=== PATIENT | female | born 1960 | race Caucasian/White ===

== ENCOUNTER 2022-12-09 05:59 | Day surgery (SDC) | payer BC ==
[2022-12-09] VITALS (10 sets, daily range): BP systolic 87–111; BP diastolic 41–54
[~2022-12-09] VITALS: Ht 170.2 cm; Wt 64.5 kg
[2022-12-09] MEDS ORDERED: LEVO50TA PO (06:25)
[2022-12-09] MEDS ORDERED: EVOL140P3 (06:25)
[2022-12-09] MEDS ORDERED: diphenhydrAMINE 25mg capsule PO PRN (06:25)
[2022-12-09] MEDS ORDERED: normal saline 1,000 ML IV SCH (06:25)
[2022-12-09] MEDS ORDERED: MV-M1TAB19 PO (06:27)
[2022-12-09] MEDS ORDERED: VITAMIN D3 PO (06:28)
[2022-12-09] MEDS ORDERED: MULT-1219 PO (06:29)
[2022-12-09] MEDS ORDERED: DOCO1CAP6 PO (06:35)
[2022-12-09 07:01] LABS: BASOPHILS % (AUTO) 0.4 % (0-1); EOSINOPHILS # (AUTO) 0.2 X10'3 (0-0.9); EOSINOPHILS % (AUTO) 2.9 % (0-6); HEMATOCRIT 43.8 % (35.0-45.0); HEMOGLOBIN 14.8 g/dl (12.0-16.0); LYMPHOCYTES # (AUTO) 2.8 X10'3 (1.1-4.8); MEAN CORPUSCULAR HEMOGLOBIN 29.9 PG (27.0-31.0); MEAN CORPUSCULAR HGB CONC 33.8 g/dL (33.0-36.5); MEAN CORPUSCULAR VOLUME 88.4 FL (78-98); MEAN PLATELET VOLUME 8.1 FL (7.4-10.4); MONOCYTES # (AUTO) 0.5 X10'3 (0-0.9); MONOCYTES % (AUTO) 8.6 % (2-12); NEUTROPHILS # (AUTO) 2.5 X10'3 (1.8-7.7); NEUTROPHILS % (AUTO) 41.1 % (42-75); PLATELET COUNT 217 X10'3 (140-440); RED BLOOD COUNT 4.95 X10'6 (4.20-5.60); RED CELL DISTRIBUTION WIDTH 13.7 % (11.5-14.5)
[2022-12-09 07:11] LABS: ALBUMIN 4.2 G/DL (3.4-5.0); ANION GAP 6 (8-16); BLOOD UREA NITROGEN 16 MG/DL (7-18); BUN/CREATININE RATIO 18.6 (6.6-38.0); CALCIUM 9.1 MG/DL (8.5-10.1); CHLORIDE 105 MMOL/L (99-107); CREATININE 0.86 MG/DL (0.40-0.90); GLUCOSE 90 MG/DL (70-104); MAGNESIUM 2.1 MG/DL (1.5-2.4); POTASSIUM 4.1 MMOL/L (3.5-5.1); SODIUM 143 MMOL/L (135-145); TOTAL CARBON DIOXIDE 31.6 MMOL/L (24-32); eGFR 66 ML/MIN
[2022-12-09] MEDS ORDERED: verapamil 2.5 mg/ml inj IV ONE (07:30)
[2022-12-09] MEDS ORDERED: midazolam 1 mg/ML 2ml injection ONE ×2 (07:30→08:08)
[2022-12-09] MEDS ORDERED: nitroGLYCERIN-Tridil 50MG/D5W 250 ML IV ONE (07:30)
[2022-12-09] MEDS ORDERED: LIDOcaine 1% (10mg/ml) 2ml vial ONE (07:31)
[2022-12-09] MEDS ORDERED: iohexol 350MG/ML 100ml bottle IV ONE (07:31)
[2022-12-09] MEDS ORDERED: heparin 1,000unit/ml 10ml vial 10 ML ONE (07:31)
[2022-12-09] MEDS ORDERED: iohexol 350 MG/ML 50ML vial IV ONE (07:31)
[2022-12-09] MEDS ORDERED: fentaNYL/PF 50MCG/1 ML 2ML syringe ONE (07:32)
[2022-12-09] MEDS ORDERED: LIDOcaine 1% 30ml preserv. free vial ONE (08:02)
[2022-12-09] MEDS ORDERED: ondansetron/PF 4mg/2ml inj IV PRN (09:10)
[2022-12-09] MEDS ORDERED: acetaminophen 325mg tablet PO PRN (09:10)
[2022-12-09] MEDS ORDERED: proCHLORperazine 10 MG/2 ml inj IV PRN (09:10)
[2022-12-09] MEDS ORDERED: HYDROcodone/acetaminophen 5mg/325mg tablet PO PRN (09:10)
[2022-12-09] MEDS ORDERED: HYDROcodone/acetaminophen 10/325mg tab PO PRN (09:10)
== END 2022-12-09 12:15 | disposition home or self-care (01) ==
LOC: SSTAY O 05:59
PROVIDERS: ATTEND Internal Medicine Cardiovascular Disease
DX: R94.39 Abnormal result of other cardiovascular function study (principal); I34.0 Nonrheumatic mitral (valve) insufficiency; Z79.899 Other long term (current) drug therapy; E78.5 Hyperlipidemia, unspecified; E03.9 Hypothyroidism, unspecified; Z98.890 Other specified postprocedural states; Z90.11 Acquired absence of right breast and nipple; Z82.49 Family history of ischemic heart disease and other diseases of the circulatory system
CPT/HCPCS: 36415; 80048; 83735; 85025; 85610; 93458; 99152; 99153; C1760; C1769; C1894; J1644; J2250; J3010; J3490; J7030; Q0163; Q9967; A6258; C1725

== ENCOUNTER 2022-12-30 05:35 | Inpatient (IN) | payer BC ==
[2022-12-27 15:09] LABS: CLARITY,URINE CLEAR (Clear); COLOR,URINE YELLOW (Yellow); GLUCOSE, URINE NEGATIVE (Neg); KETONES,URINE NEGATIVE (Neg); LEUKOCYTE ESTERASE ,URINE NEGATIVE (Neg); NITRITES, URINE NEGATIVE (Neg); OCCULT BLOOD,URINE NEGATIVE (Neg); PH,URINE 5.5 (4.8-8.0); PROTEIN,URINE NEGATIVE (Neg); UROBILINOGEN,URINE 0.2 E.U/dL (0.2-1.0)
[2022-12-27 15:10] LABS: BASOPHILS % (AUTO) 0.4 % (0-1); EOSINOPHILS # (AUTO) 0.1 X10'3 (0-0.9); EOSINOPHILS % (AUTO) 2.3 % (0-6); LYMPHOCYTES # (AUTO) 2.5 X10'3 (1.1-4.8); LYMPHOCYTES % (AUTO) 39.7 % (21-51); MEAN CORPUSCULAR HGB CONC 33.9 g/dL (33.0-36.5); MEAN CORPUSCULAR VOLUME 88.4 FL (78-98); MEAN PLATELET VOLUME 7.8 FL (7.4-10.4); MONOCYTES # (AUTO) 0.5 X10'3 (0-0.9); NEUTROPHILS # (AUTO) 3.1 X10'3 (1.8-7.7); NEUTROPHILS % (AUTO) 49.6 % (42-75); PRE OP HEMATOCRIT 41.4 % (35.0-45.0); PRE OP PLATELET COUNT 247 X10'3 (140-440); RED BLOOD COUNT 4.68 X10'6 (4.20-5.60); RED CELL DISTRIBUTION WIDTH 13.5 % (11.5-14.5)
[2022-12-27 15:16] LABS: PRE OP PROTIME 10.3 SECONDS (9.0-12.0)
[2022-12-27 15:19] LABS: UA COLLECTION TYPE CLN CATCH MIDSTREAM
[2022-12-27 15:26] LABS: HEMOGLOBIN A1C 5.3 % (4.5-6.2)
[2022-12-27 15:54] LABS: ALBUMIN 4.2 G/DL (3.4-5.0); ALBUMIN/GLOBULIN RATIO 1.2 (1.1-1.5); ALKALINE PHOSPHATASE 126 IU/L (46-116); BLOOD UREA NITROGEN 18 MG/DL (7-18); BUN/CREATININE RATIO 25.4 (6.6-38.0); CALCIUM 9.3 MG/DL (8.5-10.1); CREATININE 0.71 MG/DL (0.40-0.90); PRE OP ALT 33 U/L (30-65); PRE OP AST 27 U/L (10-37); PRE OP BILIRUB, TOTAL 1.1 MG/DL (0.0-1.0); PRE OP GLUCOSE 94 MG/DL (70-104); TOTAL CARBON DIOXIDE 32.1 MMOL/L (24-32); TOTAL PROTEIN 7.8 G/DL (6.4-8.2); eGFR 83 ML/MIN
[2022-12-27 16:18] LABS: CHLORIDE 102 MMOL/L (99-107); PRE OP ANION GAP 5 (8-16); PRE OP POTASSIUM 3.6 MMOL/L (3.4-5.1); PRE OP SODIUM 139 MMOL/L (135-145)
[~2022-12-30] VITALS: Ht 170.2 cm; Wt 64.7 kg
[2022-12-30] VITALS (23 sets, daily range): BP systolic 91–134; BP diastolic 43–83
[~2022-12-30 05:35] MED LIST: ASCO500C12 PO; CHOL100025 PO; DOCO1CAP6 PO; EVOL140P3 SQ; Insulin Reg/NS 100units/100mL 100 ML IV SCH; LEVO150T PO; LORazepam 2 mg/ml vial IV ONE; ZINC100T2 PO; ceFAZolin inj. 2,000 MG in dextrose 5%-water 100 ML IV ONE; famotidine 20mg tablet PO ONE; metoprolol tartrate 12.5mg (1/2 tablet) PO ONE; mupirocin 2% nasal ointment 1gm UD NS ONE; ringers solution, lacted 1,000 ML IV SCH; tumeric; vancomycin/NS 1 GM in NS 250 ML IV ONE
[2022-12-30 06:37] LABS: ABG BASE EXCESS 0.7 mmol/L (-2.0-2.0); ABG OXYGEN SATURATION 96.2 % (94-97); ABG PCO2 (T) 38.9 mmHg (32.0-45.0); ABG PO2 (T) 82.1 mmHg (75.0-100.0); ALLEN'S TEST POSITIVE; FMetHb 0.1 % (0.0-1.5); FO2Hb 96.1 % (94-97); TOTAL HEMOGLOBIN 14.1 G/dl (12.0-16.0)
--- NOTE | 2022-12-30 07:10 | NUR ---
PATIENT PREPARED FOR MITRAL VALVE SURGERY. PT HAS HAD A RIGHT BREAST MASTECTOMY AND DOES NOT WANT BLOOD PRESSURES OR IV'S STARTED IN THAT ARM. SHE DID ALLOW ME TO TAKE ONE BLOOD PRESSURE IN THE RIGHT ARM. PT HAS HAD A PARTIAL THYRODECTOMY. 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 BILATERAL HUMIDIFIER ATTENDANT ARE EQUAL, BILATERAL FOOT STRENGTH IS EQUAL. PTS VANCOMYCIN STARTED VIA PUMP AND MUPIROCIN OINTMENT PLACED IN BILATERAL NARES. PT IS ANXIOUS. LISSETT IS AT THE BEDSIDE. PATIENT AND EDUCATED ON USE OF INCENTIVE SPIROMETRY. PT WAS ABLE TO RETURN DEMONSTRATE THE USE OF THE INCENTIVE SPIROMETER.
[2022-12-30] MEDS ORDERED: ceFAZolin 1000mg inj ONE ×2 (07:19→10:55)
[2022-12-30] MEDS ORDERED: epiNEPHrine 1 mg/ml inj ONE (07:19)
[2022-12-30] MEDS ORDERED: MIDAZolam 1mg/ml 10ml vial ONE (07:24)
[2022-12-30] MEDS ORDERED: fentaNYL /PF 50mcg/ml 5ml ampule ONE (07:24)
--- NOTE | 2022-12-30 07:30 | NUR ---
ANESTHESIA DOCTOR AT BEDSIDE, ALL QUESTIONS ANSWERED, CARDIAC PHYSICIAN'S SUPERVISOR OVENS SHI VALDOVINOS AT BEDSIDE 16 G IV IN LEFT FOREARM, INFUSING VANCOMYCIN WELL WITHOUT ISSUES.
[2022-12-30] MEDS ORDERED: midazolam 1 mg/ML 2ml injection IV PRN (07:35)
[2022-12-30] MEDS ORDERED: fentaNYL/PF 50MCG/1 ML 2ML syringe IV PRN (07:35)
--- NOTE | 2022-12-30 07:40 | NUR ---
PT STATES SHE READ THE INFORMATION PACKAGE AND USED THE SOAP TO CLEAN HER CHEST AND BODY FOR THE PAST 2 DAYS. SHE STATES THAT THE SOAP REALLY DRIED HER SKIN OUT AND MADE HER FEEL ITCHY. NO SIGNS OF RASH NOTED.
[2022-12-30] MEDS ORDERED: nitroGLYCERIN in D5W 50mg/250ml (Tridil) infusion IV ONE (07:41)
[2022-12-30] MEDS ORDERED: rocuronium 10mg/ml inj IV ONE ×3 (07:41→08:54)
[2022-12-30] MEDS ORDERED: protamine sulf. 10mg/ml inj. IV ONE (07:41)
[2022-12-30] MEDS ORDERED: NORepinephrine 8 MG in NS 250 ML BAG (32 mcg/ml) IV ONE (07:41)
[2022-12-30] MEDS ORDERED: isoflurane 100ml inhalation liquid IH ONE (07:41)
[2022-12-30 08:05] LABS: ABG BASE EXCESS -2.5 mmol/L (-2.0-2.0); ABG HCO3 22.9 mmol/L (22.0-26.0); ABG OXYGEN SATURATION 99.4 % (94-97); ABG PCO2 41.6 mmHg (32.0-45.0); ABG PO2 177.5 mmHg (75.0-100.0); CL (ABG) 105 mmol/L (99-107); FCOHb 0.9 % (0.0-3.9); FMetHb 0.3 % (0.0-1.5); FO2Hb 98.2 % (94-97); GLUCOSE (ABG) 105 mg/dl (70-104); K (ABG) 3.7 mmol/L (3.5-5.1)
[2022-12-30] MEDS ORDERED: FENTANYL-0.9 % NACL/PF 100 ML IV PRN (08:15)
[2022-12-30] MEDS ORDERED: propofol 1000mg/100ml bottle 100 ML IV SCH (08:15)
[2022-12-30 08:30] LABS: ACT @ 1.70 U 278 SEC (193-297); ACT @ 2.84 U 418 SEC (260-420); BASELINE ACT 152 SEC (101-148); PATIENT WEIGHT 64.0k KG
[2022-12-30] MEDS ORDERED: ePHEDrine 50MG/ML INJ. ONE (08:54)
[2022-12-30] MEDS ORDERED: LIDOcaine 2% (20mg/ml) 5ml vial ONE (08:54)
[2022-12-30] MEDS ORDERED: propofol inj 20 ML IV ONE (08:54)
[2022-12-30] MEDS ORDERED: 0.9 % SODIUM CHLORIDE 10 ML VIAL ONE (08:54)
[2022-12-30] MEDS ORDERED: phenylephrine 10mg/ml inj. -priapism dosing ONE (08:55)
[2022-12-30 09:21] LABS: ABG BASE EXCESS -0.3 mmol/L (-2.0-2.0); ABG HCO3 24.9 mmol/L (22.0-26.0); ABG OXYGEN SATURATION 99.6 % (94-97); ABG PCO2 43.1 mmHg (32.0-45.0); ABG PO2 321.7 mmHg (75.0-100.0); CL (ABG) 103 mmol/L (99-107); FCOHb 0.2 % (0.0-3.9); FMetHb 0.3 % (0.0-1.5); FO2Hb 99.1 % (94-97); GLUCOSE (ABG) 122 mg/dl (70-104); IONIZED CA (ABG) 1.05 mmol/L (1.10-1.30); K (ABG) 5.2 mmol/L (3.5-5.1); TOTAL HEMOGLOBIN 9.6 G/dl (12.0-16.0)
[2022-12-30 10:03] LABS: ABG BASE EXCESS 1.5 mmol/L (-2.0-2.0); ABG HCO3 28.5 mmol/L (22.0-26.0); ABG OXYGEN SATURATION 99.3 % (94-97); ABG PCO2 57.7 mmHg (32.0-45.0); ABG PO2 461.8 mmHg (75.0-100.0); CL (ABG) 103 mmol/L (99-107); FCOHb 0.3 % (0.0-3.9); FMetHb 0.3 % (0.0-1.5); FO2Hb 98.7 % (94-97); GLUCOSE (ABG) 207 mg/dl (70-104); IONIZED CA (ABG) 1.34 mmol/L (1.10-1.30); K (ABG) 4.8 mmol/L (3.5-5.1); TOTAL HEMOGLOBIN 9.6 G/dl (12.0-16.0)
[2022-12-30 10:32] LABS: ABG BASE EXCESS -0.4 mmol/L (-2.0-2.0); ABG HCO3 23.6 mmol/L (22.0-26.0); ABG OXYGEN SATURATION 98.8 % (94-97); ABG PCO2 35.4 mmHg (32.0-45.0); ABG PO2 148.2 mmHg (75.0-100.0); CL (ABG) 106 mmol/L (99-107); FCOHb 0.4 % (0.0-3.9); FMetHb 0.3 % (0.0-1.5); FO2Hb 98.1 % (94-97); GLUCOSE (ABG) 178 mg/dl (70-104); IONIZED CA (ABG) 1.26 mmol/L (1.10-1.30); K (ABG) 4.3 mmol/L (3.5-5.1); TOTAL HEMOGLOBIN 8.9 G/dl (12.0-16.0)
[2022-12-30 10:35] LABS: ACTIVATED CLOTTING TIME 105 SEC (101-148)
[2022-12-30] MEDS ORDERED: dexamethasone sod phosphate 4mg/ml inj. ONE (10:48)
[2022-12-30] MEDS ORDERED: ondansetron/PF 4mg/2ml inj ONE (10:48)
[2022-12-30] MEDS ORDERED: morphine 10mg/ml inj. ONE (10:48)
[2022-12-30] MEDS ORDERED: insulin glargine (Lantus) pen - multi-dose SQ PRN (10:50)
[2022-12-30] MEDS ORDERED: magnesium hydroxide 30ml (MOM) UD suspension PO PRN (10:50)
[2022-12-30] MEDS ORDERED: magnesium 4gm in 100ml NS 100 ML IV PRN (10:50)
[2022-12-30] MEDS ORDERED: magnesium citrate 296ml oral solution PO PRN (10:50)
[2022-12-30] MEDS ORDERED: ondansetron/PF 4mg/2ml inj IV PRN (10:50)
[2022-12-30] MEDS ORDERED: magnesium 2GM in 50ml NS 50 ML IV PRN (10:50)
[2022-12-30] MEDS ORDERED: bisacodyl 10mg suppository rectal RC PRN (10:50)
[2022-12-30] MEDS ORDERED: dextrose 50%-water 50ml dispensing syringe IV PRN (10:50)
[2022-12-30] MEDS ORDERED: HYDROcodone/acetaminophen 10/325mg tab PO PRN (10:50)
[2022-12-30] MEDS ORDERED: potassium CL 10mEq/100ml bag 100 ML IV PRN (10:50)
[2022-12-30] MEDS ORDERED: sodium phosphate inj. 30 MMOL in dextrose 5%-water 250 ML IV PRN (10:50)
[2022-12-30] MEDS ORDERED: morphine 2 MG/ML inj. syringe IV PRN (10:50)
[2022-12-30] MEDS ORDERED: nitroGLYCERIN-Tridil 50MG/D5W 250 ML IV PRN (10:50)
[2022-12-30] MEDS ORDERED: mineral oil 133ml enema RC PRN (10:50)
[2022-12-30] MEDS ORDERED: potassium Cl 40MEQ/1/2NS 520ml 520 ML IV PRN (10:50)
[2022-12-30] MEDS ORDERED: potassium Cl 20 mEq SR tablet PO PRN (10:50)
[2022-12-30] MEDS ORDERED: metoclopramide 5 mg/ml inj IV PRN (10:50)
[2022-12-30] MEDS ORDERED: Neutra Phos packet PO PRN (10:50)
[2022-12-30] MEDS ORDERED: niCARDipine-NS 40mg/200ml IVPB 200 ML IV PRN (10:50)
[2022-12-30] MEDS ORDERED: morphine 4 MG/ML inj SYRINge IV PRN (10:50)
[2022-12-30] MEDS ORDERED: sodium phosphate inj. 15 MMOL in dextrose 5%-water 250 ML IV PRN (10:50)
[2022-12-30] MEDS ORDERED: potassium Cl 40MEQ/270ML bag 250 ML IV PRN (10:50)
[2022-12-30] MEDS ORDERED: albumin (Human) 5% 250ml 250 ML IV ONE ×2 (11:00→22:00)
--- NOTE | 2022-12-30 11:20 | NUR ---
Received to room , accompanied by Jono Scott and surgical crew. Placed on ventilator, to tuber machine operator helper, arterial line and PA line pressure zeroed & monitored. Chest tubes to suction at 20 cm. Dee cath to gravity drainage. Dressings are dry and intact. See assessment record. All vasoactive drugs are infusing via central line.
[2022-12-30 11:39] LABS: ABG BASE EXCESS -3.2 mmol/L (-2.0-2.0); ABG HCO3 22.2 mmol/L (22.0-26.0); ABG OXYGEN SATURATION 97.9 % (94-97); ABG PCO2 (T) 40.7 mmHg (32.0-45.0); FMetHb 0.2 % (0.0-1.5); FO2Hb 97.7 % (94-97); PATIENT TEMPERATURE 36.7; PEEP 5 cm H2O; RESPIRATORY RATE 12 b/min; TIDAL VOLUME 500 mL; TOTAL HEMOGLOBIN 13.1 G/dl (12.0-16.0)
[2022-12-30 11:40] LABS: BASOPHILS % (AUTO) 0.1 % (0-1); EOSINOPHILS # (AUTO) 0.1 X10'3 (0-0.9); EOSINOPHILS % (AUTO) 0.7 % (0-6); HEMATOCRIT 37.9 % (35.0-45.0); HEMOGLOBIN 12.8 g/dl (12.0-16.0); LYMPHOCYTES # (AUTO) 1.2 X10'3 (1.1-4.8); LYMPHOCYTES % (AUTO) 15.1 % (21-51); MEAN CORPUSCULAR HEMOGLOBIN 30.1 PG (27.0-31.0); MEAN CORPUSCULAR HGB CONC 33.6 g/dL (33.0-36.5); MEAN CORPUSCULAR VOLUME 89.3 FL (78-98); MEAN PLATELET VOLUME 7.4 FL (7.4-10.4); MONOCYTES # (AUTO) 0.3 X10'3 (0-0.9); MONOCYTES % (AUTO) 3.1 % (2-12); NEUTROPHILS # (AUTO) 6.5 X10'3 (1.8-7.7); PLATELET COUNT 124 X10'3 (140-440); RED BLOOD COUNT 4.25 X10'6 (4.20-5.60); RED CELL DISTRIBUTION WIDTH 13.4 % (11.5-14.5); WHITE BLOOD COUNT 8.1 X10'3 (4.5-11.0)
[2022-12-30 12:03] LABS: APTT 24 SECONDS (22-32)
[2022-12-30 12:06] LABS: ALANINE AMINOTRANSFERASE 20 U/L (12-78); ALBUMIN 3.1 G/DL (3.4-5.0); ALBUMIN/GLOBULIN RATIO 1.7 (1.1-1.5); ALKALINE PHOSPHATASE 57 IU/L (46-116); ANION GAP 6 (8-16); ASPARTATE AMINO TRANSFERASE 43 U/L (10-37); BILIRUBIN,TOTAL 0.9 MG/DL (0.1-1.0); BLOOD UREA NITROGEN 14 MG/DL (7-18); BUN/CREATININE RATIO 15.9 (6.6-38.0); CALCIUM 8.7 MG/DL (8.5-10.1); CHLORIDE 110 MMOL/L (99-107); CREATININE 0.88 MG/DL (0.40-0.90); GLUCOSE 122 MG/DL (70-104); MAGNESIUM 3.7 MG/DL (1.5-2.4); PHOSPHORUS 2.9 MG/DL (2.3-4.5); POTASSIUM 4.1 MMOL/L (3.5-5.1); SODIUM 143 MMOL/L (135-145); TOTAL CARBON DIOXIDE 27.2 MMOL/L (24-32); TOTAL PROTEIN 4.9 G/DL (6.4-8.2); eGFR 65 ML/MIN
[2022-12-30] MEDS: sodium chloride 0.45% 1,000 ML IV SCH (12:30)
[2022-12-30] MEDS: albumin (Human) 5% 250ml 250 ML IV PRN ×3 (12:31→14:53)
[2022-12-30] MEDS: Insulin Reg/NS 100units/100mL 100 ML IV SCH (12:32)
--- NOTE | 2022-12-30 13:19 | NUR ---
Nutrition Consult: Pt s/p OR for MV repair today per EMR; would benefit from high protein diet ed once appropriate post-op prior to discharge. Addendum: 12/30/22 at [address] Amended: Links added.
[2022-12-30] MEDS: ketorolac tromethamine 15mg/ml inj. IV SCH ×2 (13:55→20:40)
[2022-12-30] MEDS: potassium Cl 20mEq/100mL bag 100 ML IV PRN ×2 (13:55→16:02)
[2022-12-30] MEDS: ceFAZolin/D5W- 1GM premix 50 ML IV SCH (15:25)
[2022-12-30] MEDS ORDERED: methylPREDNISolone sod succ 1000mg vial ONE (16:00)
[2022-12-30] MEDS ORDERED: heparin 10,000 units/1 ML INJ ONE (16:00)
[2022-12-30] MEDS ORDERED: potassium Cl 2 mEq/ml inj IV ONE (16:00)
[2022-12-30] MEDS ORDERED: NORepinephrine 1 mg/ml inj IV ONE (16:00)
[2022-12-30] MEDS ORDERED: aminocaproic acid 250 MG/1 ML inj. ONE (16:00)
[2022-12-30] MEDS ORDERED: albumin (human) 25% 100 ML IV solution IV ONE (16:00)
[2022-12-30] MEDS ORDERED: sodium bicarbonate (8.4%) 1 mEq/ml syringe ONE (16:00)
[2022-12-30] MEDS ORDERED: calcium chloride 100 MG/1 ML inj IV ONE (16:00)
[2022-12-30] MEDS ORDERED: MAGNESIUM SULFATE 4 MEQ/ML (5gm/10ml) injection ONE (16:00)
[2022-12-30] MEDS ORDERED: LIDOcaine 2% (20 mg/ml) 5ml cardiac syringe ONE (16:00)
[2022-12-30] MEDS ORDERED: heparin 1,000 units/ml 10ml inj ONE (16:00)
[2022-12-30] MEDS ORDERED: mannitol 12.5gm/50mL VIAL IV ONE (16:00)
[2022-12-30 17:26] LABS: ABG BASE EXCESS -3.2 mmol/L (-2.0-2.0); ABG HCO3 22.8 mmol/L (22.0-26.0); ABG OXYGEN SATURATION 95.9 % (94-97); ABG PCO2 (T) 43.7 mmHg (32.0-45.0); FCOHb 0.2 % (0.0-3.9); FMetHb 0.2 % (0.0-1.5); FO2Hb 95.5 % (94-97); PATIENT TEMPERATURE 36.3; PEEP 5 cm H2O; TIDAL VOLUME 567 mL; TOTAL HEMOGLOBIN 9.8 G/dl (12.0-16.0)
[2022-12-30 17:59] LABS: ALBUMIN 3.4 G/DL (3.4-5.0); ANION GAP 7 (8-16); BLOOD UREA NITROGEN 13 MG/DL (7-18); BUN/CREATININE RATIO 16.7 (6.6-38.0); CALCIUM 7.6 MG/DL (8.5-10.1); CHLORIDE 115 MMOL/L (99-107); CREATININE 0.78 MG/DL (0.40-0.90); GLUCOSE 122 MG/DL (70-104); MAGNESIUM 2.4 MG/DL (1.5-2.4); PHOSPHORUS 2.5 MG/DL (2.3-4.5); POTASSIUM 4.6 MMOL/L (3.5-5.1); SODIUM 146 MMOL/L (135-145); TOTAL CARBON DIOXIDE 24.5 MMOL/L (24-32); eGFR 74 ML/MIN
--- NOTE | 2022-12-30 18:05 | NUR ---
Pt has gone apneic during multiple spontaneous breathing trials. Pt placed back on rate to facilitate safe hand off.
[2022-12-30 18:07] LABS: BASOPHILS % (AUTO) 0 % (0-1); EOSINOPHILS % (AUTO) 0 % (0-6); HEMATOCRIT 26.1 % (35.0-45.0); HEMOGLOBIN 8.8 g/dl (12.0-16.0); LYMPHOCYTES # (AUTO) 0.7 X10'3 (1.1-4.8); LYMPHOCYTES % (AUTO) 10.1 % (21-51); MEAN CORPUSCULAR HEMOGLOBIN 30.1 PG (27.0-31.0); MEAN CORPUSCULAR HGB CONC 33.7 g/dL (33.0-36.5); MEAN CORPUSCULAR VOLUME 89.2 FL (78-98); MEAN PLATELET VOLUME 7.5 FL (7.4-10.4); MONOCYTES # (AUTO) 0.2 X10'3 (0-0.9); MONOCYTES % (AUTO) 3.8 % (2-12); NEUTROPHILS # (AUTO) 5.6 X10'3 (1.8-7.7); NEUTROPHILS % (AUTO) 86.1 % (42-75); PLATELET COUNT 91 X10'3 (140-440); RED BLOOD COUNT 2.92 X10'6 (4.20-5.60); RED CELL DISTRIBUTION WIDTH 13.4 % (11.5-14.5); WHITE BLOOD COUNT 6.5 X10'3 (4.5-11.0)
--- NOTE | 2022-12-30 18:15 | NUR ---
Problems reprioritized. Patient report given, questions answered & plan of care reviewed with SAYDA Christianson.
[2022-12-30 19:40] LABS: ANISOCYTOSIS FEW; ELLIPTOCYTES FEW; PLATELET ESTIMATE DECREASED; TEAR DROP CELLS FEW
[2022-12-30] MEDS ORDERED: ZINC GLUCONATE PO SCH (20:00)
[2022-12-30] MEDS: sennosides/docusate sodium tablet PO SCH (20:00)
[2022-12-30] MEDS: vancomycin/NS 1 GM ADD-VANTAGE 250 ML IV SCH (20:39)
[2022-12-30] MEDS: mupirocin 2% nasal ointment 1gm UD NS SCH (20:39)
[2022-12-30] MEDS: atorvastatin 10mg tablet PO SCH (21:00)
[2022-12-30] MEDS ORDERED: amiodarone 150mg/dext, iso-os 100 ML IV ONE (22:00)
[2022-12-30 22:15] LABS: ABG BASE EXCESS -3.3 mmol/L (-2.0-2.0); ABG HCO3 22.1 mmol/L (22.0-26.0); ABG OXYGEN SATURATION 93.8 % (94-97); ABG PCO2 (T) 40.9 mmHg (32.0-45.0); ABG PO2 (T) 73.9 mmHg (75.0-100.0); ALLEN'S TEST POSITIVE; FCOHb 0.3 % (0.0-3.9); FMetHb 0.3 % (0.0-1.5); FO2Hb 93.2 % (94-97); PATIENT TEMPERATURE 36.7; PEEP 5 cm H2O; TOTAL HEMOGLOBIN 9.5 G/dl (12.0-16.0)
[2022-12-30] MEDS: amiodarone/D5 360MG/200ML BAG 200 ML IV SCH (22:40)
[2022-12-31] VITALS (21 sets, daily range): BP systolic 91–121; BP diastolic 40–64
[2022-12-31] MEDS: ceFAZolin/D5W- 1GM premix 50 ML IV SCH ×3 (03:07→16:17)
[2022-12-31] MEDS: ketorolac tromethamine 15mg/ml inj. IV SCH ×2 (03:08→07:33)
[2022-12-31] MEDS: amiodarone/D5 360MG/200ML BAG 200 ML IV SCH (04:37)
[2022-12-31] MEDS: acetaminophen 325mg tablet PO PRN ×2 (05:08→11:30)
[2022-12-31 05:12] LABS: BASOPHILS % (AUTO) 0 % (0-1); EOSINOPHILS % (AUTO) 0 % (0-6); HEMATOCRIT 25.8 % (35.0-45.0); HEMOGLOBIN 8.6 g/dl (12.0-16.0); LYMPHOCYTES # (AUTO) 1.6 X10'3 (1.1-4.8); LYMPHOCYTES % (AUTO) 14.6 % (21-51); MEAN CORPUSCULAR HEMOGLOBIN 29.9 PG (27.0-31.0); MEAN CORPUSCULAR HGB CONC 33.2 g/dL (33.0-36.5); MEAN CORPUSCULAR VOLUME 89.9 FL (78-98); MEAN PLATELET VOLUME 8.1 FL (7.4-10.4); MONOCYTES % (AUTO) 8.9 % (2-12); NEUTROPHILS # (AUTO) 8.4 X10'3 (1.8-7.7); NEUTROPHILS % (AUTO) 76.5 % (42-75); PLATELET COUNT 117 X10'3 (140-440); RED BLOOD COUNT 2.87 X10'6 (4.20-5.60); RED CELL DISTRIBUTION WIDTH 13.8 % (11.5-14.5)
[2022-12-31 05:26] LABS: ALANINE AMINOTRANSFERASE 19 U/L (12-78); ALBUMIN 3.5 G/DL (3.4-5.0); ALBUMIN/GLOBULIN RATIO 1.9 (1.1-1.5); ALKALINE PHOSPHATASE 44 IU/L (46-116); ANION GAP 5 (8-16); ASPARTATE AMINO TRANSFERASE 49 U/L (10-37); BILIRUBIN,TOTAL 0.6 MG/DL (0.1-1.0); BLOOD UREA NITROGEN 13 MG/DL (7-18); BUN/CREATININE RATIO 18.8 (6.6-38.0); CALCIUM 7.6 MG/DL (8.5-10.1); CHLORIDE 111 MMOL/L (99-107); CREATININE 0.69 MG/DL (0.40-0.90); GLUCOSE 136 MG/DL (70-104); MAGNESIUM 2.5 MG/DL (1.5-2.4); PHOSPHORUS 3.9 MG/DL (2.3-4.5); SODIUM 142 MMOL/L (135-145); TOTAL CARBON DIOXIDE 26.3 MMOL/L (24-32); TOTAL PROTEIN 5.3 G/DL (6.4-8.2); eGFR 86 ML/MIN
--- NOTE | 2022-12-31 06:30 | NUR ---
Patient in room CICU 2007. I have received report from SAYDA Christianson and had the opportunity to ask questions and assume patient care.
[2022-12-31] MEDS: sennosides/docusate sodium tablet PO SCH ×2 (07:31→20:11)
[2022-12-31] MEDS: cholecalciferol (vitamin D3) 1,000 unit (25mcg) tablet PO SCH (07:31)
[2022-12-31] MEDS: levoTHYROXINE 75mcg tablet PO SCH (07:32)
[2022-12-31] MEDS ORDERED: mineral oil/petrolatum ophthal oint EACHEYE SCH (08:00)
[2022-12-31] MEDS ORDERED: metoprolol tartrate 12.5mg (1/2 tablet) PO SCH (08:00)
[2022-12-31] MEDS: vancomycin/NS 1 GM ADD-VANTAGE 250 ML IV SCH ×2 (08:18→20:09)
[2022-12-31] MEDS: mupirocin 2% nasal ointment 1gm UD NS SCH ×2 (08:18→20:11)
--- NOTE | 2022-12-31 09:10 | NUR ---
Left radial arterial line and Swanz/ Introducer discontinued.
[2022-12-31] MEDS: potassium Cl 20mEq/100mL bag 100 ML IV PRN ×2 (09:49→16:38)
[2022-12-31] MEDS: aspirin 81mg tab.chew PO SCH (12:46)
[2022-12-31] MEDS: LIDOcaine 5% patch TP SCH (12:52)
[2022-12-31] MEDS: HYDROcodone/acetaminophen 10/325mg tab PO PRN ×2 (13:36→17:35)
--- NOTE | 2022-12-31 16:45 | NUR ---
Dr De La Cruz rounded. Pacer check performed. Pt underlying rhythm sinus mabel in 50s. She has complaints of discomfort from central line site. Received orders to discontinue central line from Dr De La Cruz.
--- NOTE | 2022-12-31 17:40 | NUR ---
Central line pulled. Pt has edema in right neck. Observable bounding right carotid pulse. Pt reports that discomfort has decreased, but is still present. Manual pressure held [address] De La Cruz. Close observation ordered. No imaging orders at this time.
--- NOTE | 2022-12-31 18:16 | NUR ---
Problems reprioritized. Patient report given, questions answered & plan of care reviewed with SAYDA Adamson.
[2022-12-31] MEDS: atorvastatin 10mg tablet PO SCH (20:10)
[2022-12-31] MEDS: Insulin Reg/NS 100units/100mL 100 ML IV SCH (20:10)
[2023-01-01] VITALS (25 sets, daily range): BP systolic 96–127; BP diastolic 40–76
[2023-01-01] MEDS: ceFAZolin/D5W- 1GM premix 50 ML IV SCH (00:29)
[2023-01-01 04:26] LABS: BASOPHILS % (AUTO) 0 % (0-1); EOSINOPHILS % (AUTO) 0 % (0-6); HEMATOCRIT 27.9 % (35.0-45.0); HEMOGLOBIN 9.3 g/dl (12.0-16.0); LYMPHOCYTES # (AUTO) 1.7 X10'3 (1.1-4.8); LYMPHOCYTES % (AUTO) 15.2 % (21-51); MEAN CORPUSCULAR HEMOGLOBIN 29.9 PG (27.0-31.0); MEAN CORPUSCULAR HGB CONC 33.3 g/dL (33.0-36.5); MEAN CORPUSCULAR VOLUME 89.8 FL (78-98); MEAN PLATELET VOLUME 8.2 FL (7.4-10.4); MONOCYTES % (AUTO) 8.4 % (2-12); NEUTROPHILS # (AUTO) 8.8 X10'3 (1.8-7.7); NEUTROPHILS % (AUTO) 76.4 % (42-75); PLATELET COUNT 123 X10'3 (140-440); RED BLOOD COUNT 3.11 X10'6 (4.20-5.60); WHITE BLOOD COUNT 11.5 X10'3 (4.5-11.0)
[2023-01-01 04:35] LABS: ALBUMIN 3.5 G/DL (3.4-5.0); ANION GAP 6 (8-16); BLOOD UREA NITROGEN 15 MG/DL (7-18); BUN/CREATININE RATIO 22.1 (6.6-38.0); CALCIUM 8.5 MG/DL (8.5-10.1); CHLORIDE 105 MMOL/L (99-107); CREATININE 0.68 MG/DL (0.40-0.90); GLUCOSE 132 MG/DL (70-104); MAGNESIUM 2.1 MG/DL (1.5-2.4); PHOSPHORUS 2.9 MG/DL (2.3-4.5); SODIUM 137 MMOL/L (135-145); TOTAL CARBON DIOXIDE 25.6 MMOL/L (24-32); eGFR 87 ML/MIN
[2023-01-01] MEDS: acetaminophen 325mg tablet PO PRN (04:35)
--- NOTE | 2023-01-01 06:26 | NUR ---
Problems reprioritized. Patient report given, questions answered & plan of care reviewed with SAYDA Braxton.
[2023-01-01] MEDS: levoTHYROXINE 75mcg tablet PO SCH (07:30)
[2023-01-01] MEDS: mupirocin 2% nasal ointment 1gm UD NS SCH (07:30)
[2023-01-01] MEDS: cholecalciferol (vitamin D3) 1,000 unit (25mcg) tablet PO SCH (07:30)
[2023-01-01] MEDS: pantoprazole 40mg Tablet.DR PO SCH (07:30)
[2023-01-01] MEDS: sennosides/docusate sodium tablet PO SCH ×2 (07:30→20:04)
[2023-01-01] MEDS: aspirin 81mg tab.chew PO SCH (07:31)
[2023-01-01] MEDS: LIDOcaine 5% patch TP SCH (07:31)
--- NOTE | 2023-01-01 08:57 | NUR ---
Everett and CHELA rounded on patient. chest tubes removed. Pacemaker briefly paused to see underlying rhythm. Accelerated junctional rhythm.
--- NOTE | 2023-01-01 09:43 | NUR ---
discontinued urinary catheter
[2023-01-01] MEDS: sodium chloride 0.45% 1,000 ML IV SCH (10:21)
--- NOTE | 2023-01-01 18:15 | NUR ---
Patient in room CICU 2007. I have received report from Irais and had the opportunity to ask questions and assume patient care.
[2023-01-01] MEDS: atorvastatin 10mg tablet PO SCH ×2 (20:09→21:00)
[2023-01-02] VITALS (23 sets, daily range): BP systolic 86–127; BP diastolic 34–65
[2023-01-02 03:33] LABS: BASOPHILS % (AUTO) 0 % (0-1); EOSINOPHILS % (AUTO) 0 % (0-6); HEMATOCRIT 25.4 % (35.0-45.0); HEMOGLOBIN 8.7 g/dl (12.0-16.0); LYMPHOCYTES # (AUTO) 1.8 X10'3 (1.1-4.8); LYMPHOCYTES % (AUTO) 22.6 % (21-51); MEAN CORPUSCULAR HEMOGLOBIN 30.3 PG (27.0-31.0); MEAN CORPUSCULAR HGB CONC 34.1 g/dL (33.0-36.5); MEAN PLATELET VOLUME 7.7 FL (7.4-10.4); MONOCYTES # (AUTO) 0.7 X10'3 (0-0.9); MONOCYTES % (AUTO) 9.2 % (2-12); NEUTROPHILS # (AUTO) 5.5 X10'3 (1.8-7.7); NEUTROPHILS % (AUTO) 68.2 % (42-75); PLATELET COUNT 124 X10'3 (140-440); RED BLOOD COUNT 2.86 X10'6 (4.20-5.60); RED CELL DISTRIBUTION WIDTH 13.5 % (11.5-14.5); WHITE BLOOD COUNT 8.1 X10'3 (4.5-11.0)
[2023-01-02 03:46] LABS: ALBUMIN 3.3 G/DL (3.4-5.0); ANION GAP 4 (8-16); BLOOD UREA NITROGEN 16 MG/DL (7-18); BUN/CREATININE RATIO 26.2 (6.6-38.0); CALCIUM 8.6 MG/DL (8.5-10.1); CHLORIDE 105 MMOL/L (99-107); CREATININE 0.61 MG/DL (0.40-0.90); GLUCOSE 106 MG/DL (70-104); MAGNESIUM 1.9 MG/DL (1.5-2.4); PHOSPHORUS 2.8 MG/DL (2.3-4.5); POTASSIUM 4.1 MMOL/L (3.5-5.1); SODIUM 140 MMOL/L (135-145); TOTAL CARBON DIOXIDE 30.9 MMOL/L (24-32); eGFR > 90 ML/MIN
[2023-01-02] MEDS: Insulin Reg/NS 100units/100mL 100 ML IV SCH (05:30)
--- NOTE | 2023-01-02 06:05 | NUR ---
Problems reprioritized. Patient report given, Irais, RN questions answered & plan of care reviewed with .
[2023-01-02] MEDS: pantoprazole 40mg Tablet.DR PO SCH (07:29)
[2023-01-02] MEDS: sennosides/docusate sodium tablet PO SCH ×2 (07:29→19:48)
[2023-01-02] MEDS: cholecalciferol (vitamin D3) 1,000 unit (25mcg) tablet PO SCH (07:29)
[2023-01-02] MEDS: levoTHYROXINE 75mcg tablet PO SCH (07:29)
[2023-01-02] MEDS: aspirin 81mg tab.chew PO SCH (07:30)
[2023-01-02] MEDS: acetaminophen 325mg tablet PO PRN (07:30)
[2023-01-02] MEDS: LIDOcaine 5% patch TP SCH (07:32)
--- NOTE | 2023-01-02 07:39 | NUR ---
PA in room, turned down pacemaker to see underlying rhythm. Sinus mabel. Backup pace placed to 60 bpm.
--- NOTE | 2023-01-02 07:44 | NUR ---
Correction from previous note, rhythm bounces between junctional and sinus rhythm.
[2023-01-02] MEDS ORDERED: NUT.TX.GLUC.INTOLER,LAC-FR,SOY (GLUCERNA) 237 ML PO SCH (13:00)
--- NOTE | 2023-01-02 14:44 | NUR ---
F/u for nutrition consult: Pt seen at bedside for written and verbal protein education. Noted documented with average 50% PO intake not fully meeting estimated nutrient needs. Pt reports she has a low appetite and dislikes the food. Food preferences were obtained and d/w dietary, see below. Noted a Glucerna TID was ordered, d/w bedside RN recommendation for ONS change to Ensure Plus HP for additional nutrition. Pt denies any flavor preferences. Pt denies food allergies or difficulty chewing, swallowing, or feeding self with incision site. LBM 12/30. Pt denies feeling constipated. Pt receiving routine bowel care and with additional PRN bowel care available. RD encouraged pt to d/w RN need for admin of PRN bowel care if she continues without a BM. Pt agrees to prune juice with supper tonight, d/w dietary. Pt also informed of nourishment room and ability to request additional food from RN if needed and encouraged pt to d/w RN should she have additional requests. Pt provided with RD contact information and encouraged to reach out if needed. Will remain available. Recommendations: 1) Continue regular diet given poor PO intake 2) [place] food preferences: cottage cheese with fruit on the side WB, yogurt WL, smoothies WS; pt likes cream of wheat, peanut butter and brown sugar with oatmeal, sinha, applesauce, pudding, veggies, and low fat milk 3) Ensure Plus HP TID 4) Routine bowel care; utilize PRN bowel care 5) Weekly scaled weights Addendum: 01/02/23 at [address] Amended: Links added.
[2023-01-02] MEDS: LACTOSE-REDUCED FOOD 237ML LIQUID PO SCH (18:00)
[2023-01-03] VITALS (23 sets, daily range): BP systolic 93–117; BP diastolic 39–53
--- NOTE | 2023-01-03 06:14 | NUR ---
Problems reprioritized. Patient report given, questions answered & plan of care reviewed with SAYDA Foss.
[2023-01-03 06:23] LABS: BASOPHILS % (AUTO) 0.3 % (0-1); EOSINOPHILS % (AUTO) 0.5 % (0-6); HEMATOCRIT 27.1 % (35.0-45.0); HEMOGLOBIN 9.2 g/dl (12.0-16.0); LYMPHOCYTES # (AUTO) 2.4 X10'3 (1.1-4.8); LYMPHOCYTES % (AUTO) 29.8 % (21-51); MEAN CORPUSCULAR HEMOGLOBIN 30.5 PG (27.0-31.0); MEAN CORPUSCULAR HGB CONC 33.9 g/dL (33.0-36.5); MONOCYTES # (AUTO) 0.8 X10'3 (0-0.9); MONOCYTES % (AUTO) 10.3 % (2-12); NEUTROPHILS # (AUTO) 4.8 X10'3 (1.8-7.7); NEUTROPHILS % (AUTO) 59.1 % (42-75); PLATELET COUNT 176 X10'3 (140-440); RED BLOOD COUNT 3.01 X10'6 (4.20-5.60); RED CELL DISTRIBUTION WIDTH 13.6 % (11.5-14.5); WHITE BLOOD COUNT 8.1 X10'3 (4.5-11.0)
[2023-01-03 06:35] LABS: ALBUMIN 3.4 G/DL (3.4-5.0); ANION GAP 4 (8-16); BLOOD UREA NITROGEN 17 MG/DL (7-18); BUN/CREATININE RATIO 28.8 (6.6-38.0); CALCIUM 8.7 MG/DL (8.5-10.1); CHLORIDE 104 MMOL/L (99-107); CREATININE 0.59 MG/DL (0.40-0.90); GLUCOSE 102 MG/DL (70-104); POTASSIUM 3.9 MMOL/L (3.5-5.1); SODIUM 138 MMOL/L (135-145); eGFR > 90 ML/MIN
[2023-01-03] MEDS ORDERED: LIDOcaine 5% patch TP PRN (08:00)
[2023-01-03] MEDS: LACTOSE-REDUCED FOOD 237ML LIQUID PO SCH ×3 (08:00→18:16)
[2023-01-03] MEDS: cholecalciferol (vitamin D3) 1,000 unit (25mcg) tablet PO SCH (09:09)
[2023-01-03] MEDS: levoTHYROXINE 75mcg tablet PO SCH (09:09)
[2023-01-03] MEDS: pantoprazole 40mg Tablet.DR PO SCH (09:09)
[2023-01-03] MEDS: sennosides/docusate sodium tablet PO SCH ×2 (09:09→19:23)
[2023-01-03] MEDS: aspirin 81mg tab.chew PO SCH (09:09)
[2023-01-03] MEDS ORDERED: potassium Cl 20 mEq SR tablet PO PRN ×2 (09:15)
[2023-01-03] MEDS ORDERED: magnesium 2GM in 50ml NS 50 ML IV PRN (09:15)
[2023-01-03] MEDS ORDERED: potassium CL 10mEq/100ml bag 100 ML IV PRN (09:15)
[2023-01-03] MEDS ORDERED: potassium Cl 40MEQ/1/2NS 520ml 520 ML IV PRN (09:15)
[2023-01-03] MEDS ORDERED: potassium Cl 20mEq/100mL bag 100 ML IV PRN (09:15)
[2023-01-03] MEDS ORDERED: magnesium 4gm in 100ml NS 100 ML IV PRN (09:15)
[2023-01-03] MEDS ORDERED: potassium Cl 40MEQ/270ML bag 250 ML IV PRN (09:15)
--- NOTE | 2023-01-03 09:43 | NUR ---
Nutrition consult: Pt seen at bedside by TENNILLE 01/02, please see previous TENNILLE note. Addendum: 01/03/23 at [address] Amended: Links added.
[2023-01-03] MEDS ORDERED: ASPI81TA53 PO (10:38)
[2023-01-03] MEDS ORDERED: HYDR-3965 PO ×2 (10:38)
--- NOTE | 2023-01-03 18:13 | NUR ---
Patient in room CICU 2007. I have received report from SAYDA Foss and had the opportunity to ask questions and assume patient care.
[2023-01-03] MEDS: magnesium Cl slow-release 64mg tablet PO SCH (19:23)
[2023-01-04] VITALS (12 sets, daily range): BP systolic 99–115; BP diastolic 41–58
--- NOTE | 2023-01-04 06:17 | NUR ---
Problems reprioritized. Patient report given, questions answered & plan of care reviewed with SAYDA Markham.
--- NOTE | 2023-01-04 06:30 | NUR ---
Patient in room CICU 2008. I have received report from Kristin ALFREDO and had the opportunity to ask questions and assume patient care.
[2023-01-04 06:53] LABS: BASOPHILS % (AUTO) 0.2 % (0-1); EOSINOPHILS # (AUTO) 0.2 X10'3 (0-0.9); EOSINOPHILS % (AUTO) 2.1 % (0-6); HEMATOCRIT 28.3 % (35.0-45.0); HEMOGLOBIN 9.7 g/dl (12.0-16.0); LYMPHOCYTES # (AUTO) 2.7 X10'3 (1.1-4.8); LYMPHOCYTES % (AUTO) 33.1 % (21-51); MEAN CORPUSCULAR HEMOGLOBIN 30.6 PG (27.0-31.0); MEAN CORPUSCULAR HGB CONC 34.1 g/dL (33.0-36.5); MEAN CORPUSCULAR VOLUME 89.8 FL (78-98); MEAN PLATELET VOLUME 7.7 FL (7.4-10.4); MONOCYTES # (AUTO) 0.9 X10'3 (0-0.9); MONOCYTES % (AUTO) 10.5 % (2-12); NEUTROPHILS # (AUTO) 4.4 X10'3 (1.8-7.7); NEUTROPHILS % (AUTO) 54.1 % (42-75); PLATELET COUNT 220 X10'3 (140-440); RED BLOOD COUNT 3.16 X10'6 (4.20-5.60); RED CELL DISTRIBUTION WIDTH 13.6 % (11.5-14.5); WHITE BLOOD COUNT 8.1 X10'3 (4.5-11.0)
[2023-01-04 07:03] LABS: ALBUMIN 3.3 G/DL (3.4-5.0); ANION GAP 4 (8-16); BLOOD UREA NITROGEN 13 MG/DL (7-18); BUN/CREATININE RATIO 22.4 (6.6-38.0); CHLORIDE 103 MMOL/L (99-107); CREATININE 0.58 MG/DL (0.40-0.90); GLUCOSE 98 MG/DL (70-104); SODIUM 136 MMOL/L (135-145); TOTAL CARBON DIOXIDE 28.8 MMOL/L (24-32); eGFR > 90 ML/MIN
[2023-01-04] MEDS: levoTHYROXINE 75mcg tablet PO SCH (08:00)
[2023-01-04] MEDS: LACTOSE-REDUCED FOOD 237ML LIQUID PO SCH (08:00)
[2023-01-04] MEDS: aspirin 81mg tab.chew PO SCH (08:46)
[2023-01-04] MEDS: cholecalciferol (vitamin D3) 1,000 unit (25mcg) tablet PO SCH (08:46)
[2023-01-04] MEDS: pantoprazole 40mg Tablet.DR PO SCH (08:46)
[2023-01-04] MEDS: sennosides/docusate sodium tablet PO SCH (08:47)
[2023-01-04] MEDS: magnesium Cl slow-release 64mg tablet PO SCH (08:47)
[2023-01-04] MEDS: acetaminophen 325mg tablet PO PRN (08:50)
--- NOTE | 2023-01-04 10:09 | NUR ---
Initial: Pt admit for severe mitral insufficiency. Currently POD #5 s/p MVR. Pt on a regular diet, documented with average 55% PO intake of meals since 01/01. Current meal intake is meeting ~82% estimated energy needs and ~86% estimated protein needs. Pt receiving an Ensure Plus HP TID and documented with 100% PO intake of one ONS and refusal x 3 ONS. Recommend discontinuing ONS if acceptance does not improve. Patient's food preferences have already been obtained and d/w dietary, see below. Pt has RD contact information and has been encouraged to reach out for further preferences. LBM 2/3 following admin of additional bowel care. Will continue to follow and make recommendations as appropriate. Recommendations: 1) Continue regular diet given poor PO intake 2) [place] food preferences: cottage cheese with fruit on the side WB, yogurt WL, smoothies WS; pt likes cream of wheat, peanut butter and brown sugar with oatmeal, sinha, applesauce, pudding, veggies, and low fat milk 3) Ensure Plus HP TID; discontinue ONS if acceptance does not improve 4) Routine bowel care; utilize PRN bowel care 5) Weekly scaled weights Addendum: 01/04/23 at [address] Amended: Links added.
--- NOTE | 2023-01-04 12:23 | NUR ---
Pt discharged per MD order. IV discontinued. cannula intact. Discharge instructions explained. all questions answered. Medications electronically transmitted to [facility] on [facility]. all belongings collected. pt wheeled to the lobby and out the door accompanied by this nurse and her , where she loaded into private vehicle. pt discharged without s/sx acute distress.
== END 2023-01-04 12:14 | disposition home or self-care (01) | DRG 220 ==
LOC: PAS IN 05:35 → CICU 2S 11:23
PROVIDERS: ADMIT Thoracic Surgery (Cardiothoracic Vascular Surgery); ATTEND Thoracic Surgery (Cardiothoracic Vascular Surgery)
PROC: 02BG0ZZ Excision of Mitral Valve, Open Approach (ICD-10-PCS; 2022-12-30)
PROC: B24BZZ4 Ultrasonography of Heart with Aorta, Transesophageal (ICD-10-PCS; 2022-12-30)
PROC: 02B70ZK Excision of Left Atrial Appendage, Open Approach (ICD-10-PCS; 2022-12-30)
PROC: 02UG08Z Supplement Mitral Valve with Zooplastic Tissue, Open Approach (ICD-10-PCS; principal; 2022-12-30 07:41)
DX: I34.0 Nonrheumatic mitral (valve) insufficiency (principal); I44.2 Atrioventricular block, complete; E78.00 Pure hypercholesterolemia, unspecified; I48.91 Unspecified atrial fibrillation; M54.9 Dorsalgia, unspecified; R00.1 Bradycardia, unspecified
CPT/HCPCS: 93312; Z7506; Z7508; 36415; 36600; 71045; 71046; 76376; 80048; 80053; 81003; 82330; 82435; 82803; 82947; 82948; 83036; 83735; 84100; 84132; 84295; 84443; 85008; 85018; 85025; 85347; 85610; 85730; 86885; 86900; 86901; 86920; 87081; 93005; 94002; 94010; 94760; 97116; 97161; 97530; A4333; A4615; A4618; A6258; A6449; A7000; A7048; C1751; G0378; J0171; J0282; J0690; J1100; J1644; J1815; J1885; J2060; J2150; J2250; J2270; J2274; J2370; J2405; J2704; J2720; J2930; J3010; J3370; J3475; J3480; J3490; J7030; J7040; J7050; J7060; J7120; P9045; P9047

== ENCOUNTER 2023-01-08 23:45 | Inpatient (IN) | payer BC ==
[~2023-01-08] VITALS: Ht 170.2 cm; Wt 61.8 kg
[~2023-01-08 23:45] MED LIST changes: +ASPI81TA53 PO; +HYDR-3965 PO; -Insulin Reg/NS 100units/100mL 100 ML IV SCH; -LORazepam 2 mg/ml vial IV ONE; -ceFAZolin inj. 2,000 MG in dextrose 5%-water 100 ML IV ONE; -famotidine 20mg tablet PO ONE; -metoprolol tartrate 12.5mg (1/2 tablet) PO ONE; -mupirocin 2% nasal ointment 1gm UD NS ONE; -ringers solution, lacted 1,000 ML IV SCH; -vancomycin/NS 1 GM in NS 250 ML IV ONE
[2023-01-09 00:11] LABS: BASOPHILS % (AUTO) 0.4 % (0-1); EOSINOPHILS # (AUTO) 0.5 X10'3 (0-0.9); EOSINOPHILS % (AUTO) 4.6 % (0-6); HEMOGLOBIN 10.2 g/dl (12.0-16.0); LYMPHOCYTES # (AUTO) 3.7 X10'3 (1.1-4.8); LYMPHOCYTES % (AUTO) 31.3 % (21-51); MEAN CORPUSCULAR HEMOGLOBIN 29.8 PG (27.0-31.0); MEAN CORPUSCULAR HGB CONC 33.9 g/dL (33.0-36.5); MEAN PLATELET VOLUME 6.5 FL (7.4-10.4); MONOCYTES # (AUTO) 0.8 X10'3 (0-0.9); MONOCYTES % (AUTO) 6.4 % (2-12); NEUTROPHILS # (AUTO) 6.8 X10'3 (1.8-7.7); NEUTROPHILS % (AUTO) 57.3 % (42-75); PLATELET COUNT 377 X10'3 (140-440); RED BLOOD COUNT 3.41 X10'6 (4.20-5.60); RED CELL DISTRIBUTION WIDTH 13.6 % (11.5-14.5); WHITE BLOOD COUNT 11.9 X10'3 (4.5-11.0)
[2023-01-09 00:23] LABS: ALANINE AMINOTRANSFERASE 30 U/L (12-78); ALBUMIN 3.5 G/DL (3.4-5.0); ALBUMIN/GLOBULIN RATIO 1.1 (1.1-1.5); ALKALINE PHOSPHATASE 97 IU/L (46-116); ANION GAP 9 (8-16); ASPARTATE AMINO TRANSFERASE 20 U/L (10-37); BILIRUBIN,TOTAL 0.5 MG/DL (0.1-1.0); BLOOD UREA NITROGEN 13 MG/DL (7-18); BUN/CREATININE RATIO 18.3 (6.6-38.0); CALCIUM 9.3 MG/DL (8.5-10.1); CHLORIDE 100 MMOL/L (99-107); CREATININE 0.71 MG/DL (0.40-0.90); GLUCOSE 113 MG/DL (70-104); POTASSIUM 3.9 MMOL/L (3.5-5.1); SODIUM 137 MMOL/L (135-145); TOTAL CARBON DIOXIDE 28.4 MMOL/L (24-32); TOTAL PROTEIN 6.8 G/DL (6.4-8.2); eGFR 83 ML/MIN
[2023-01-09 00:30] LABS: MAGNESIUM 2.1 MG/DL (1.5-2.4)
[2023-01-09] MEDS ORDERED: LORazepam 2 mg/ml vial IV ONE (00:35)
--- NOTE | 2023-01-09 00:47 | NUR ---
sternal chest incision healing well.
[2023-01-09] MEDS ORDERED: morphine 2 MG/ML inj. syringe IV PRN (01:10)
[2023-01-09] MEDS ORDERED: ondansetron/PF 4mg/2ml inj IV PRN (01:10)
[2023-01-09] MEDS ORDERED: acetaminophen 325mg tablet PO PRN ×2 (01:10)
[2023-01-09] MEDS ORDERED: HYDROcodone/acetaminophen 5mg/325mg tablet PO PRN (01:10)
[2023-01-09] MEDS ORDERED: potassium Cl 40MEQ/1/2NS 520ml 520 ML IV PRN (01:10)
[2023-01-09] MEDS ORDERED: magnesium Cl slow-release 64mg tablet PO PRN (01:10)
[2023-01-09] MEDS ORDERED: potassium Cl 20 mEq SR tablet PO PRN ×2 (01:10)
[2023-01-09] MEDS ORDERED: magnesium 4gm in 100ml NS 100 ML IV PRN (01:10)
[2023-01-09] MEDS: normal saline 1000ml 1,000 ML IV SCH ×2 (01:39→05:46)
--- NOTE | 2023-01-09 02:12 | NUR ---
Spouse Jeff [phone]
[2023-01-09] MEDS: levoTHYROXINE 75mcg tablet PO SCH (07:00)
--- NOTE | 2023-01-09 07:42 | NUR ---
spouse Jeff called for update. Requests updates as they come in, and he will come when she is ready to go to the floor.
[2023-01-09] MEDS: EVOLOCUMAB SQ SCH (09:07)
[2023-01-09] MEDS: heparin, porcine 5000 units/ml vial SQ SCH ×2 (09:18→19:54)
[2023-01-09] MEDS: aspirin 81mg tab.chew PO SCH (09:19)
[2023-01-09 10:40] VITALS: BP 92/39
--- NOTE | 2023-01-09 10:41 | NUR ---
Patient in room PCU 3023. I have received report from Nikki ALFREDO and had the opportunity to ask questions and assume patient care. Pt arrived on unit approximately 1030hrs. Pt brought by ED staff. V/S BP 92/39, HR 95, RR 15, Denies pain, SPO2 96% RA, T 97.7.
--- NOTE | 2023-01-09 11:35 | NUR ---
Notified. Page Sent promotional table spacer PAGER ID: [phone] MESSAGE: [id number]- Shongood- Pt has no bm since 01/05. Pt agrees to bowel care. Can I get an order for a suppository? Can she also have an order of MOM? Thank you. Jimmy Keating LVN.
[2023-01-09 11:50] VITALS: BP 94/40
[2023-01-09] MEDS ORDERED: magnesium hydroxide 30ml (MOM) UD suspension PO ONE (11:50)
[2023-01-09] MEDS ORDERED: bisacodyl 10mg suppository rectal RC PRN (11:50)
[2023-01-09] MEDS ORDERED: magnesium hydroxide 30ml (MOM) UD suspension PO PRN (12:50)
--- NOTE | 2023-01-09 13:28 | NUR ---
Pt reports Dizziness/ sweating x 2 episodes prior to admission. Pt has a mitral valve repair 12/30 Addendum: 01/09/23 at 1335 by Ozzy Keating LVN Amended: Links added.
[2023-01-09 18:00] VITALS: BP_SYST 100; BP_SYST 90; BP_SYST 94; BP_SYST 95; BP_DIAS 38; BP_DIAS 43; BP_DIAS 47; BP_DIAS 90
--- NOTE | 2023-01-09 18:18 | NUR ---
Patient in room PCU 3023. I have received report from Ozzy CAMACHO and had the opportunity to ask questions and assume patient care.
--- NOTE | 2023-01-09 18:32 | NUR ---
Problems reprioritized. Patient report given, questions answered & plan of care reviewed with Susana CAMACHO.
[2023-01-09] MEDS ORDERED: temazepam 15mg capsule PO PRN (21:00)
[2023-01-09 22:00] VITALS: BP_SYST 88; BP_DIAS 33; BP_DIAS 50
--- NOTE | 2023-01-09 23:25 | NUR ---
Page Sent PAGER ID: [phone] MESSAGE: [id number]: Edna Barber : BP is 88/33 map 51 w/ machine and 88/50 map 63 manually. Pt BP's have been soft all day in the low 90's systolic.
--- NOTE | 2023-01-09 23:32 | NUR ---
Dr called back and advised no intervention needed for BP as this is her baseline w/ her recent mitral valve procedure.
[2023-01-10] VITALS (10 sets, daily range): BP systolic 92–107; BP diastolic 31–55
--- NOTE | 2023-01-10 06:08 | NUR ---
Problems reprioritized. Patient report given, questions answered & plan of care reviewed with Ozzy CAMACHO.
[2023-01-10 06:15] LABS: EOSINOPHILS # (AUTO) 0.5 X10'3 (0-0.9); HEMOGLOBIN 9.2 g/dl (12.0-16.0)
[2023-01-10 06:18] LABS: BASOPHILS # (AUTO) 0.1 X10'3 (0-0.2); BASOPHILS % (AUTO) 0.6 % (0-1); EOSINOPHILS % (AUTO) 5.9 % (0-6); HEMATOCRIT 27.7 % (35.0-45.0); LYMPHOCYTES # (AUTO) 2.6 X10'3 (1.1-4.8); LYMPHOCYTES % (AUTO) 31.4 % (21-51); MEAN CORPUSCULAR HEMOGLOBIN 29.6 PG (27.0-31.0); MEAN CORPUSCULAR HGB CONC 33.3 g/dL (33.0-36.5); MEAN CORPUSCULAR VOLUME 88.9 FL (78-98); MEAN PLATELET VOLUME 6.9 FL (7.4-10.4); MONOCYTES # (AUTO) 0.6 X10'3 (0-0.9); MONOCYTES % (AUTO) 6.8 % (2-12); NEUTROPHILS # (AUTO) 4.6 X10'3 (1.8-7.7); NEUTROPHILS % (AUTO) 55.3 % (42-75); PLATELET COUNT 318 X10'3 (140-440); RED BLOOD COUNT 3.12 X10'6 (4.20-5.60); RED CELL DISTRIBUTION WIDTH 13.5 % (11.5-14.5); WHITE BLOOD COUNT 8.3 X10'3 (4.5-11.0)
[2023-01-10 06:29] LABS: ALANINE AMINOTRANSFERASE 25 U/L (12-78); ALKALINE PHOSPHATASE 91 IU/L (46-116); ANION GAP 6 (8-16); ASPARTATE AMINO TRANSFERASE 18 U/L (10-37); BILIRUBIN,TOTAL 0.5 MG/DL (0.1-1.0); BLOOD UREA NITROGEN 11 MG/DL (7-18); CALCIUM 8.9 MG/DL (8.5-10.1); CHLORIDE 105 MMOL/L (99-107); CREATININE 0.61 MG/DL (0.40-0.90); GLUCOSE 94 MG/DL (70-104); SODIUM 138 MMOL/L (135-145); TOTAL CARBON DIOXIDE 27.4 MMOL/L (24-32); eGFR > 90 ML/MIN
[2023-01-10] MEDS: normal saline 1000ml 1,000 ML IV SCH ×2 (07:06→20:04)
[2023-01-10] MEDS: levoTHYROXINE 75mcg tablet PO SCH (07:08)
[2023-01-10] MEDS: EVOLOCUMAB SQ SCH (07:10)
[2023-01-10] MEDS: heparin, porcine 5000 units/ml vial SQ SCH ×2 (08:00→20:58)
[2023-01-10] MEDS: aspirin 81mg tab.chew PO SCH (08:12)
--- NOTE | 2023-01-10 10:19 | NUR ---
Paged. Page Sent PAGER ID: [phone] MESSAGE: [phone]- Ana Lewis CRA, Pt going to have a pacemaker procedure today 1400hrs approximately. Jimmy Keating LVN (114 character message out of a maximum of 240)
[2023-01-10] MEDS ORDERED: heparin 1,000unit/ml 10ml vial 10 ML ONE (13:35)
[2023-01-10] MEDS ORDERED: midazolam 1 mg/ML 2ml injection ONE ×4 (13:35→14:38)
[2023-01-10] MEDS ORDERED: iohexol 350MG/ML 100ml bottle IV ONE (13:35)
[2023-01-10] MEDS ORDERED: fentaNYL/PF 50MCG/1 ML 2ML syringe ONE ×2 (13:36→14:17)
[2023-01-10] MEDS ORDERED: heparin 1,000 UNITS/NS 500ml 2,000 ML ONE (13:36)
[2023-01-10] MEDS ORDERED: LIDOcaine 1% 30ml preserv. free vial ONE (13:41)
[2023-01-10] MEDS ORDERED: ceFAZolin 1000mg inj ONE ×2 (13:53)
--- NOTE | 2023-01-10 14:14 | NUR ---
Pt left for pacemaker procedure.
[2023-01-10] MEDS ORDERED: normal saline 1000ml 400 ML IV SCH (15:30)
--- NOTE | 2023-01-10 15:35 | NUR ---
Pt arrived from procedure. Perclose noted to R groin. No active bleeding. No hematoma. Pedal pulses palpable
--- NOTE | 2023-01-10 18:02 | NUR ---
TUBE MAKER documentation: I have reviewed and agree with all interventions, assessments performed and documented by DOUG NOBLE.
--- NOTE | 2023-01-10 18:03 | NUR ---
DOUG Medication Administration: For this medication-pass time frame, all medication were reviewed, dispensed, administered and documented per hospital policy by DOUG NOBLE.
--- NOTE | 2023-01-10 18:30 | NUR ---
Problems reprioritized. Patient report given, questions answered & plan of care reviewed with Susana CAMACHO. No active bleeding noted to Right groin site. Bedside report given.
--- NOTE | 2023-01-10 18:33 | NUR ---
Pt NPO today for procedure Addendum: 01/10/23 at 1834 by Ozzy Keating LVN Amended: Links added.
--- NOTE | 2023-01-10 18:39 | NUR ---
Patient in room PCU 3023. I have received report from Ozzy CAMACHO and had the opportunity to ask questions and assume patient care.
[2023-01-10] MEDS ORDERED: ZINC GLUCONATE PO SCH (20:00)
[2023-01-11 02:00] VITALS: BP 91/36
--- NOTE | 2023-01-11 06:28 | NUR ---
Problems reprioritized. Patient report given, questions answered & plan of care reviewed with Ozzy CAMACHO.
--- NOTE | 2023-01-11 06:38 | NUR ---
Patient in room PCU 3023. I have received report from Susana CAMACHO and had the opportunity to ask questions and assume patient care. Pt awake, reading book in bed, Pt groin site has no active bleeding to right groin. Denies pain, denies discomfort Addendum: 01/11/23 at 0639 by Ozzy Keating LVN Amended: Links added.
[2023-01-11 06:39] LABS: BASOPHILS % (AUTO) 0.3 % (0-1); EOSINOPHILS # (AUTO) 0.4 X10'3 (0-0.9); EOSINOPHILS % (AUTO) 3.7 % (0-6); HEMATOCRIT 28.7 % (35.0-45.0); HEMOGLOBIN 9.7 g/dl (12.0-16.0); LYMPHOCYTES # (AUTO) 2.6 X10'3 (1.1-4.8); LYMPHOCYTES % (AUTO) 22.9 % (21-51); MEAN CORPUSCULAR HEMOGLOBIN 29.6 PG (27.0-31.0); MEAN CORPUSCULAR HGB CONC 33.6 g/dL (33.0-36.5); MEAN PLATELET VOLUME 6.8 FL (7.4-10.4); MONOCYTES # (AUTO) 0.6 X10'3 (0-0.9); MONOCYTES % (AUTO) 4.9 % (2-12); NEUTROPHILS # (AUTO) 7.9 X10'3 (1.8-7.7); NEUTROPHILS % (AUTO) 68.2 % (42-75); PLATELET COUNT 337 X10'3 (140-440); RED BLOOD COUNT 3.27 X10'6 (4.20-5.60); RED CELL DISTRIBUTION WIDTH 13.4 % (11.5-14.5); WHITE BLOOD COUNT 11.5 X10'3 (4.5-11.0)
[2023-01-11 06:52] LABS: ALANINE AMINOTRANSFERASE 23 U/L (12-78); ALBUMIN/GLOBULIN RATIO 0.9 (1.1-1.5); ALKALINE PHOSPHATASE 102 IU/L (46-116); ANION GAP 7 (8-16); ASPARTATE AMINO TRANSFERASE 24 U/L (10-37); BILIRUBIN,TOTAL 0.6 MG/DL (0.1-1.0); BLOOD UREA NITROGEN 12 MG/DL (7-18); BUN/CREATININE RATIO 18.8 (6.6-38.0); CALCIUM 9.1 MG/DL (8.5-10.1); CHLORIDE 105 MMOL/L (99-107); CREATININE 0.64 MG/DL (0.40-0.90); GLUCOSE 88 MG/DL (70-104); POTASSIUM 4.1 MMOL/L (3.5-5.1); SODIUM 140 MMOL/L (135-145); TOTAL CARBON DIOXIDE 27.7 MMOL/L (24-32); TOTAL PROTEIN 6.3 G/DL (6.4-8.2); eGFR > 90 ML/MIN
[2023-01-11] MEDS: levoTHYROXINE 75mcg tablet PO SCH (07:44)
[2023-01-11] MEDS: heparin, porcine 5000 units/ml vial SQ SCH (07:45)
[2023-01-11] MEDS: aspirin 81mg tab.chew PO SCH (07:47)
[2023-01-11] MEDS ORDERED: OMEGA-3/DHA/EPA/FISH OIL 1 EACH CAPSULE.DR PO SCH (08:00)
[2023-01-11] MEDS ORDERED: ascorbic acid 500mg tablet PO SCH (08:00)
[2023-01-11] MEDS ORDERED: cholecalciferol (vitamin D3) 1,000 unit (25mcg) tablet PO SCH (08:00)
--- NOTE | 2023-01-11 11:52 | NUR ---
All written and verbal instructions provided. All questions answered. Pt has already scheduled MD appointments as per Discharge instructions. PIV discontinued. Tele box discontinued. Pt Perclose suture was removed by Dr. Marcial this morning. No active bleeding noted to site. No hematoma noted. Patient ambulated to lobby and left in personal vehicle driven by . All belongings including cellphone and book taken with patient. Addendum: 01/11/23 at 1200 by Ozzy Keating LVN Amended: Links added.
== END 2023-01-11 11:38 | disposition home or self-care (01) | DRG 228 ==
LOC: ER 23:46 → ED HOLD 01-09 01:11 → PCU 3S 01-09 10:33
PROVIDERS: ADMIT Internal Medicine; ATTEND Internal Medicine
PROC: 02HK3NZ Insertion of Intracardiac Pacemaker into Right Ventricle, Percutaneous Approach (ICD-10-PCS; principal; 2023-01-10)
DX: I45.5 Other specified heart block (principal); Z00.6 Encounter for examination for normal comparison and control in clinical research program; I21.A1 Myocardial infarction type 2; D62 Acute posthemorrhagic anemia; I49.9 Cardiac arrhythmia, unspecified; E03.9 Hypothyroidism, unspecified; E78.5 Hyperlipidemia, unspecified; F41.9 Anxiety disorder, unspecified; I48.0 Paroxysmal atrial fibrillation; Z79.82 Long term (current) use of aspirin; Z85.3 Personal history of malignant neoplasm of breast; Z95.2 Presence of prosthetic heart valve; Z79.899 Other long term (current) drug therapy; Z90.11 Acquired absence of right breast and nipple
CPT/HCPCS: 33274; 36415; 71045; 80053; 83735; 83880; 84443; 84484; 85025; 93005; 93308; 99152; 99153; 99285; A6258; A6449; C1760; C1769; C1894; G0378; J0690; J1644; J2060; J2250; J3010; J3490; J7030; Q9967

== ENCOUNTER 2023-02-02 18:39 | Emergency (ER) | payer BC ==
[~2023-02-02] VITALS: Ht 170.2 cm; Wt 63.6 kg
[~2023-02-02 18:39] MED LIST changes: -HYDR-3965 PO
[2023-02-02 18:56] LABS: BASOPHILS % (AUTO) 0.6 % (0-1); EOSINOPHILS # (AUTO) 0.3 X10'3 (0-0.9); EOSINOPHILS % (AUTO) 4.1 % (0-6); HEMATOCRIT 34.9 % (35.0-45.0); HEMOGLOBIN 11.5 g/dl (12.0-16.0); LYMPHOCYTES # (AUTO) 3.1 X10'3 (1.1-4.8); LYMPHOCYTES % (AUTO) 48.6 % (21-51); MEAN CORPUSCULAR HEMOGLOBIN 28.2 PG (27.0-31.0); MEAN CORPUSCULAR VOLUME 85.6 FL (78-98); MEAN PLATELET VOLUME 7.2 FL (7.4-10.4); MONOCYTES # (AUTO) 0.6 X10'3 (0-0.9); MONOCYTES % (AUTO) 9.1 % (2-12); NEUTROPHILS # (AUTO) 2.4 X10'3 (1.8-7.7); NEUTROPHILS % (AUTO) 37.6 % (42-75); PLATELET COUNT 284 X10'3 (140-440); RED BLOOD COUNT 4.07 X10'6 (4.20-5.60); RED CELL DISTRIBUTION WIDTH 13.8 % (11.5-14.5); WHITE BLOOD COUNT 6.4 X10'3 (4.5-11.0)
[2023-02-02 19:08] LABS: ALANINE AMINOTRANSFERASE 23 U/L (12-78); ALBUMIN 3.7 G/DL (3.4-5.0); ALBUMIN/GLOBULIN RATIO 1.2 (1.1-1.5); ALKALINE PHOSPHATASE 137 IU/L (46-116); ANION GAP 6 (8-16); ASPARTATE AMINO TRANSFERASE 18 U/L (10-37); BILIRUBIN,TOTAL 0.5 MG/DL (0.1-1.0); BLOOD UREA NITROGEN 23 MG/DL (7-18); BUN/CREATININE RATIO 33.8 (6.6-38.0); CALCIUM 9.1 MG/DL (8.5-10.1); CHLORIDE 105 MMOL/L (99-107); CREATININE 0.68 MG/DL (0.40-0.90); GLUCOSE 109 MG/DL (70-104); POTASSIUM 3.9 MMOL/L (3.5-5.1); SODIUM 141 MMOL/L (135-145); TOTAL CARBON DIOXIDE 29.9 MMOL/L (24-32); TOTAL PROTEIN 6.8 G/DL (6.4-8.2); eGFR 87 ML/MIN
[2023-02-02 19:15] LABS: MAGNESIUM 2.1 MG/DL (1.5-2.4)
[2023-02-02] MEDS ORDERED: meclizine 12.5mg tablet PO ONE (22:25)
[2023-02-02] MEDS ORDERED: normal saline 1000ML IV soln IVB ONE (22:25)
[2023-02-03] MEDS ORDERED: MECL25TA PO (00:13)
[2023-02-03 00:49] VITALS: BP 116/64
== END 2023-02-03 00:56 | disposition home or self-care (01) ==
LOC: ER 18:39
DX: R42 Dizziness and giddiness (principal); E78.00 Pure hypercholesterolemia, unspecified; R11.2 Nausea with vomiting, unspecified; R61 Generalized hyperhidrosis; Z86.79 Personal history of other diseases of the circulatory system; Z95.4 Presence of other heart-valve replacement
CPT/HCPCS: 36415; 71045; 80053; 83735; 83880; 84484; 85025; 93005; 96360; 96361; 99285; J7030; J8597

== ENCOUNTER 2024-04-05 10:04 | Inpatient (IN) | payer MEDICARE, BC ==
[~2024-04-05] VITALS: Ht 170.2 cm; Wt 66.2 kg
[2024-04-05] VITALS (14 sets, daily range): BP systolic 86–123; BP diastolic 42–97; PULSE 82–155; RESP 12–18; TEMP 97.6–98.1; O2SAT 96–98
[~2024-04-05 10:04] MED LIST changes: +MECL25TA PO
[2024-04-05 10:43] LABS: EOSINOPHILS # (AUTO) 0.3 X10'3 (0-0.9); HEMOGLOBIN 15.4 g/dl (12.0-16.0); LYMPHOCYTES # (AUTO) 3.4 X10'3 (1.1-4.8); LYMPHOCYTES % (AUTO) 41.7 % (21-51); MONOCYTES # (AUTO) 0.8 X10'3 (0-0.9); MONOCYTES % (AUTO) 9.7 % (2-12); NEUTROPHILS # (AUTO) 3.7 X10'3 (1.8-7.7)
[2024-04-05 10:45] LABS: BASOPHILS % (AUTO) 0.3 % (0-1); EOSINOPHILS % (AUTO) 3.7 % (0-6); HEMATOCRIT 46.1 % (35.0-45.0); MEAN CORPUSCULAR HEMOGLOBIN 29.6 PG (27.0-31.0); MEAN CORPUSCULAR HGB CONC 33.4 g/dL (33.0-36.5); MEAN CORPUSCULAR VOLUME 88.5 FL (78-98); MEAN PLATELET VOLUME 7.7 FL (7.4-10.4); NEUTROPHILS % (AUTO) 44.6 % (42-75); PLATELET COUNT 236 X10'3 (140-440); RED BLOOD COUNT 5.21 X10'6 (4.20-5.60); RED CELL DISTRIBUTION WIDTH 13.5 % (11.5-14.5); WHITE BLOOD COUNT 8.2 X10'3 (4.5-11.0)
[2024-04-05] MEDS: diltiazem 5mg/ml 5ml inj. IV ONE (10:56)
[2024-04-05 11:06] LABS: ALBUMIN 4.1 G/DL (3.4-5.0); ANION GAP 7 (8-16); BLOOD UREA NITROGEN 14 MG/DL (7-18); BUN/CREATININE RATIO 15.4 (10.0-20.0); CALCIUM 9.2 MG/DL (8.5-10.1); CHLORIDE 105 MMOL/L (99-107); CREATININE 0.91 MG/DL (0.40-0.90); GLUCOSE 102 MG/DL (70-104); POTASSIUM 4.1 MMOL/L (3.5-5.1); PRO BRAIN NATRIURETIC PEPTIDE 1973 PG/ML (0-125); SODIUM 140 MMOL/L (135-145); eCRCL 60 ML/MIN; eGFR 62 ML/MIN
[2024-04-05] MEDS: diltiazem-NS 100mg/100ml 100 ML IV SCH (11:50)
[2024-04-05] MEDS: nitroGLYCERIN 1gm ointment UD TP ONE (11:52)
[2024-04-05 12:45] LABS: FREE T4 (FREE THYROXINE) 1.11 NG/DL (0.73-1.40); THYROID STIMULATING HORMONE 2.14 ulU/ml (0.34-4.50)
[2024-04-05] MEDS: normal saline 1000ml 1,000 ML IV ONE (13:35)
[2024-04-05] MEDS: aspirin 325mg tablet PO ONE (13:36)
[2024-04-05] MEDS ORDERED: potassium Cl 40MEQ/1/2NS 520ml 520 ML IV PRN (14:30)
[2024-04-05] MEDS ORDERED: magnesium Cl slow-release 64mg tablet PO PRN (14:30)
[2024-04-05] MEDS ORDERED: ondansetron/PF 4mg/2ml inj IV PRN (14:30)
[2024-04-05] MEDS ORDERED: potassium Cl 20 mEq SR tablet PO PRN ×2 (14:30)
[2024-04-05] MEDS ORDERED: mag hydrox/Alum hydrox/simeth 30ml oral suspension PO PRN (14:30)
[2024-04-05] MEDS ORDERED: acetaminophen 325mg tablet PO PRN (14:30)
[2024-04-05] MEDS ORDERED: magnesium hydroxide 30ml (MOM) UD suspension PO PRN (14:30)
[2024-04-05] MEDS ORDERED: magnesium 2GM in 50ml NS 50 ML IV PRN (14:30)
[2024-04-05] MEDS ORDERED: magnesium 4gm in 100ml NS 100 ML IV PRN (14:30)
[2024-04-05] MEDS: amiodarone in dextrose, iso-osm 150mg/100ml bag IV ONE (16:17)
[2024-04-05] MEDS: amiodarone/D5 360MG/200ML BAG 200 ML IV SCH (16:36)
[2024-04-05] MEDS: digoxin 250mcg/ml 2ml ampule IV ONE ×2 (17:02→21:09)
[2024-04-05] MEDS: apixaban 5mg tablet PO SCH (17:15)
[2024-04-05 19:01] LABS: HEMOGLOBIN A1C 5.3 % (4.5-6.2)
[2024-04-05] MEDS: K and/or MAG REPLACEMENT MC SCH (20:00)
[2024-04-05] MEDS: docusate sod 100mg capsule PO SCH (21:07)
[2024-04-05 22:09] LABS: DIGOXIN 0.2 NG/ML (0.9-1.9)
[2024-04-06] VITALS (9 sets, daily range): BP systolic 87–110; BP diastolic 51–67; PULSE 62–117; RESP 12–21; TEMP 97.4–98; O2SAT 95–98
[2024-04-06] MEDS: digoxin 250mcg/ml 2ml ampule IV ONE (04:51)
[2024-04-06 06:50] LABS: BASOPHILS % (AUTO) 0.3 % (0-1); EOSINOPHILS # (AUTO) 0.3 X10'3 (0-0.9); EOSINOPHILS % (AUTO) 4.6 % (0-6); HEMATOCRIT 44.2 % (35.0-45.0); HEMOGLOBIN 14.8 g/dl (12.0-16.0); LYMPHOCYTES # (AUTO) 2.5 X10'3 (1.1-4.8); LYMPHOCYTES % (AUTO) 43.7 % (21-51); MEAN CORPUSCULAR HEMOGLOBIN 29.7 PG (27.0-31.0); MEAN CORPUSCULAR HGB CONC 33.5 g/dL (33.0-36.5); MEAN CORPUSCULAR VOLUME 88.4 FL (78-98); MEAN PLATELET VOLUME 7.7 FL (7.4-10.4); MONOCYTES # (AUTO) 0.5 X10'3 (0-0.9); MONOCYTES % (AUTO) 8.2 % (2-12); NEUTROPHILS # (AUTO) 2.5 X10'3 (1.8-7.7); NEUTROPHILS % (AUTO) 43.2 % (42-75); PLATELET COUNT 189 X10'3 (140-440); RED CELL DISTRIBUTION WIDTH 13.6 % (11.5-14.5); WHITE BLOOD COUNT 5.7 X10'3 (4.5-11.0)
[2024-04-06 07:05] LABS: ALANINE AMINOTRANSFERASE 17 U/L (12-78); ALBUMIN 3.4 G/DL (3.4-5.0); ALBUMIN/GLOBULIN RATIO 1.1 (1.1-1.5); ALKALINE PHOSPHATASE 89 IU/L (46-116); ANION GAP 8 (8-16); ASPARTATE AMINO TRANSFERASE 18 U/L (10-37); BILIRUBIN,TOTAL 0.6 MG/DL (0.1-1.0); BLOOD UREA NITROGEN 10 MG/DL (7-18); BUN/CREATININE RATIO 13.2 (10.0-20.0); CALCIUM 8.9 MG/DL (8.5-10.1); CHLORIDE 107 MMOL/L (99-107); CHOL/HDL RATIO 3.1 (0.00-4.99); CHOLESTEROL 199 MG/DL (0-200); CREATININE 0.76 MG/DL (0.40-0.90); GLUCOSE 98 MG/DL (70-104); HDL CHOLESTEROL 64 MG/DL (35-60); LDL CHOLESTEROL 91 MG/DL (50-100); MAGNESIUM 1.9 MG/DL (1.5-2.4); POTASSIUM 4.1 MMOL/L (3.5-5.1); SODIUM 142 MMOL/L (135-145); TOTAL CARBON DIOXIDE 27.4 MMOL/L (24-32); TOTAL PROTEIN 6.6 G/DL (6.4-8.2); TRIGLYCERIDES 216 MG/DL (20-135); eCRCL 72 ML/MIN; eGFR 76 ML/MIN
[2024-04-06] MEDS: aspirin 81mg tab.chew PO SCH (08:58)
[2024-04-06] MEDS: levoTHYROXINE 75mcg tablet PO SCH (08:59)
[2024-04-06] MEDS: cholecalciferol (vitamin D3) 1,000 unit (25mcg) tablet PO SCH (08:59)
[2024-04-06] MEDS: flecainide 50mg tablet PO SCH (14:03)
[2024-04-06] MEDS: carVEDilol 3.125mg tablet PO SCH (14:04)
[2024-04-06] MEDS ORDERED: TAM50T PO (16:01)
[2024-04-06] MEDS ORDERED: COR3.125T PO (16:01)
[2024-04-06] MEDS ORDERED: APIX5TAB3 PO (16:04)
== END 2024-04-06 10:07 | disposition home or self-care (01) | DRG 282 ==
LOC: ER 10:08 → ED HOLD 14:26 → EDBEDREQ 15:25 → PCU 3S 16:00
PROVIDERS: ADMIT Family Medicine; ATTEND Family Medicine
DX: I48.0 Paroxysmal atrial fibrillation (principal); I21.A1 Myocardial infarction type 2; E78.00 Pure hypercholesterolemia, unspecified; R79.89 Other specified abnormal findings of blood chemistry; E03.9 Hypothyroidism, unspecified; Z85.3 Personal history of malignant neoplasm of breast; Z90.11 Acquired absence of right breast and nipple; Z79.82 Long term (current) use of aspirin; Z79.899 Other long term (current) drug therapy; Z86.73 Personal history of transient ischemic attack (TIA), and cerebral infarction without residual deficits; Z95.0 Presence of cardiac pacemaker
CPT/HCPCS: 36415; 71045; 80048; 80053; 80061; 80162; 83036; 83735; 83880; 84439; 84443; 84484; 85025; 87081; 93005; 93306; 99285; G0378; J0282; J1160; J3490; J7030